=== PATIENT | female | born 1980 | race Caucasian/White ===

== ENCOUNTER 2023-06-03 04:12 | Emergency (ER) | payer OTHER, MEDICAID, SELFPAY ==
[2023-06-03 04:21] VITALS: BP 139/75; PULSE 105; RESP 18; TEMP 36.4; O2SAT 100; BMI 28.3
--- NOTE | 2023-06-03 04:31 | ED.EXTPRO ---
HPI - Extremity Problem General Chief complaint: Extremity Problem,Nontraumatic Stated complaint: lower rt leg cellulitis Time Seen by Provider: 06/03/23 04:14 Source: patient and family Mode of arrival: Wheelchair Limitations: no limitations History of Present Illness HPI Narrative: This is a 42-year-old female with reported history of MS who presents with complaints of cellulitis infection of her right lower leg. Patient states she was seen and Torie Connelly as well as at [place] had cellulitis of her lower extremity was at 1 facility for 3 days receiving IV antibiotics and then left, she went to another facility briefly received IV antibiotics but left shortly thereafter she felt very uncomfortable with staff. Patient states she believes initial injury was from cutting herself from shaving. She states she has had infections on her skin before. She does not think that she is had MRSA before. Patient states the redness is actually improved from when she was in the hospital and received 3 days of IV antibiotics. Patient states that she presents today because it is now weeping and that is pain has increased. She denies fevers in the last 24 hours. She states she did have fevers before at the other hospital. Patient denies chest pain, no shortness of breath, no syncope. She denies nausea or vomiting, no diarrhea constipation, no urinary symptoms. No numbness tingling or weakness of her lower extremities. She states the leg is swollen but improved from before. There is quite a bit of skin breakdown in sloughing which she states that has actually improved somewhat as well. Patient states that she was not discharged on any oral antibiotics but left against medical advice. She does use tobacco, to active alcohol use. Denies any recreational or IV drugs. Related Data Previous Rx's Medication Instructions Recorded non-adherent bandage 4 X 3 #25 ea 06/03/23 (Non-Stick Pad) sulfamethoxazole 800 1 tab PO Q12H #20 tabs 06/03/23 mg-trimethoprim 160 mg tablet (Bactrim DS) Allergies Allergy/AdvReac Type Severity Reaction Status Date / Time Penicillins Allergy Severe Anaphylaxis Verified 06/03/23 04:52 Review of Systems Review of Systems ROS Unobtainable: All systems reviewed & are unremarkable except as noted in HPI and below Patient History Social History Smoking Status: Current some day smoker Smoking Status: Current some day smoker Substance Use Type: marijuana Exam Narrative Exam Narrative: GENERAL: Alert and oriented x three, female in mild distress. HEENT: Head normocephalic, atraumatic, EOMI, pupils reactive, face symmetric, moist mucous membranes NECK: Supple, full range of motion CARDIOVASCULAR: Regular rate and rhythm without murmurs, rubs or gallops. RESPIRATORY: Breath sounds equal bilaterally, no wheezes rales or rhonchi. ABDOMEN: Soft, nontender. Normoactive bowel sounds all 4 quadrants. No guarding or rebound, rigidity, no mass : No CVA tenderness EXTREMITIES: Normal range of motion, no clubbing. Neurovascularly intact. Patient has significant swelling of the right lower extremity, she has an area that is about 12 cm in length circumferential over the lower leg with sloughing, weepage and scabbing, there is no purulent drainage but is serous sanguinous. Patient has erythema tracking down towards her foot and also tracking up to the level of her knee. She does have swelling slightly right compared to left. She is tender to touch. Does have positive pulses bilaterally with normal range of motion. Sensation to light touch throughout cap refill less than 2 seconds in all 5 toes. Patient's lower extremity was marked with pen and day and time. NEUROLOGICAL: Cranial nerves II through XII grossly intact. Moving all extremities SKIN: Warm, dry, no petechiae. See above. No lesions or rashes appreciated elsewhere on patient's body. Initial Vital Signs Initial Vital Signs: Vital Signs Temperature 97.6 F 06/03/23 04:21 Pulse Rate 105 H 06/03/23 04:21 Respiratory Rate 18 06/03/23 04:21 Blood Pressure 139/75 06/03/23 04:21 Pulse Oximetry 100 06/03/23 04:21 Oxygen Delivery Method Room Air 06/03/23 04:21 Course Orders Ordered: Discontinued Medications Hydrocodone Bitart/Acetaminophen (Hydrocodone/Acet 5/325 Prepack) 1 bottle MISC SEEINSTR ONE Stop: 06/03/23 04:45 Last Admin: 06/03/23 04:53 Dose: 1 bottle Trimethoprim/Sulfamethoxazole (Trimeth/Sulfa 160/800 (Ds) Tablet) 1 tab PO NOW ONE Stop: 06/03/23 04:45 Last Admin: 06/03/23 04:53 Dose: 1 tab Vital Signs Vital signs: Vital Signs - 8 hr 06/03/23 04:21 06/03/23 04:45 Temperature 97.6 F Pulse Rate 105 H 100 H Respiratory Rate 18 18 Blood Pressure 139/75 Pulse Oximetry 100 100 Oxygen Delivery Method Room Air Room Air MDM - Extremity (Nontraumatic) MDM Narrative Medical decision making narrative: This is a 42-year-old female who presents with complaint of right lower leg cellulitis has received 3 days of IV antibiotics in the an additional dose of IV panic after leaving both hospitals. She was not discharged with any oral medications. She left without seeing the admitting physician at [facility]. She states she has had Bactrim in the past and has been helpful. Discussed with patient she should be admitted for IV antibiotics for her lower extremity she has cellulitis with some significant sloughing and skin breakdown no necrosis but there is quite a bit of weeping patient I do not expect to improve with oral antibiotics at all. Express this directly to the patient and her fiance who is at bedside. She is very adamant she does not wish to be admitted or have lab work or IV. Patient was given prescription for oral antibiotic we discussed she can return at any time as welcome to do so. She was given a prepack of pain medication. She did request a prescription for bandages. Patient's lower extremity was marked and she was encouraged to return for admission. She is slightly tachycardic, she is afebrile here she is overall nontoxic except for her lower extremity. Did receive patient's Against Medical Advice discharge summary from [facility] patient was present in the facility for about 4 hours, appears she left without prescription for antibiotics or seeing the physician who admitted her. She did have a white count of 16, 2% bands with a hemoglobin of 12.9 and platelets of 175, she had normal creatinine of 0.69 with a sodium of 129, potassium 3.2 chloride 96 in his CO2 of 20. Glucose was 173 with a serum calcium of 8.3. Discharge Plan Departure Patient Disposition: Home Clinical Impression: Cellulitis of right lower limb Instructions: DI for Cellulitis -- Adult Activity Restrictions/Additional Instructions: It is highly recommended that you stay for admission and inpatient antibiotics. I do not think your leg will heal with oral antibiotics. You are welcome to return at any time You can take Ibuprofen up to 600mg every 6 hours. You can take [place] 1 tablet every 6 hours as needed. This medication can make you sleepy do not drive, perform hazardous activities or make any major decisions while taking it. This medication will make you constipated please take a stool softener once to twice daily until stools are soft and regular. Take antibiotics until completed. [facility]cription [facility] to [facility] in [place]. You can return at any time, please return immediately for fevers increasing redness, swelling, increasing pain, drainage or purulent drainage, new numbness, tingling or weakness or other new or concerning changes. Prescriptions: New sulfamethoxazole-trimethoprim [Bactrim DS] 800-160 mg tablet 1 tab PO Q12H Qty: 20 0RF (DME) Non-Stick Pad 4 X 3 bandage See Rx Instructions .Route Qty: 25 0RF Rx Instructions: As directed Stand Alone Forms: Patient Portal/API, Work Release Note
[2023-06-03 04:45] VITALS: PULSE 100; RESP 18; O2SAT 100
[2023-06-03] MEDS: TRIMETH/SULFA 160/800 (DS) TABLET 1 TAB PO (04:53)
[2023-06-03] MEDS: HYDROCODONE/ACET 5/325 PREPACK 1 BOTTLE MISC (04:53)
== END 2023-06-03 05:05 | disposition home or self-care (01) ==
LOC: ED 05:04
PROVIDERS: Emergency Provider Emergency Medicine
DX: L03.115 Cellulitis of right lower limb (principal)
CPT/HCPCS: 99283

== ENCOUNTER 2023-06-04 19:16 | Emergency (ER) | payer OTHER, MEDICAID, SELFPAY ==
[2023-06-04 19:19] VITALS: BP 124/71; PULSE 116; RESP 18; TEMP 36.3; O2SAT 98; BMI 28.3
[2023-06-04 19:33] VITALS: BP 111/68; PULSE 106; O2SAT 98
--- NOTE | 2023-06-04 19:58 | ED_ITS ---
HPI - Recheck/Abnormal Lab/Rx General Chief Complaint: Recheck/Abnormal Lab/Rx Stated Complaint: cellulitis rt leg Time Seen by Provider: 06/04/23 19:57 Source: patient Mode of arrival: Wheelchair History of Present Illness HPI narrative: 42-year-old woman with history of multiple sclerosis, Raynaud's disease, chronic lower extremity edema continued tobacco use methamphetamine (patient was positive for methamphetamine on May 23 at [facility] in [place].) was admitted to [facility] for sepsis on May 23 and ended up leaving Against Medical Advice later that same day. Later that same day she was seen and evaluated at [facility] had a CT scan of the lower extremity with concerns for necrotizing fasciitis with no soft tissue gas or abscess appreciated. Labs on the with her 2nd visit showed her lactic acid was down from 2.4-1.7 and procalcitonin was significantly elevated. Social work note from May 23 found the patient at low risk for discharge planning needs. Patient notes that she was given 10 days of Bactrim and has taken 3 days and is feeling better. She was given 4 tablets of [place] that she would mixed with ibuprofen seem to help however she is continuing to have pain and comes in for help with the pain. She denies fevers or chills. She very much does not want any additional workup, IVs, IV antibiotic but would like help with pain. She is wondering if topical lidocaine might be helpful. Related Data Home Medications Medication Instructions Recorded Confirmed furosemide 20 mg tablet 20 mg PO BID 06/04/23 06/04/23 Previous Rx's Medication Instructions Recorded non-adherent bandage 4 X 3 #25 ea 06/03/23 (Non-Stick Pad) sulfamethoxazole 800 1 tab PO Q12H #20 tabs 06/03/23 mg-trimethoprim 160 mg tablet (Bactrim DS) bacitracin 500 unit/gram topical 1 applic topical TID #28 grams 06/04/23 ointment lidocaine HCl 4 % topical gel 1 applic topical BID #118 mL 06/04/23 Allergies Allergy/AdvReac Type Severity Reaction Status Date / Time Penicillins Allergy Severe Anaphylaxis Verified 06/04/23 19:19 Patient History Social History Smoking Status: Current some day smoker Smoking Status: Current some day smoker Substance Use Type: marijuana Exam Initial Vital Signs Initial Vital Signs: Vital Signs Temperature 97.4 F L 06/04/23 19:19 Pulse Rate 116 H 06/04/23 19:19 Respiratory Rate 18 06/04/23 19:19 Blood Pressure 124/71 06/04/23 19:19 Pulse Oximetry 98 06/04/23 19:19 Oxygen Delivery Method Room Air 06/04/23 19:19 Course Orders Ordered: Discontinued Medications Bacitracin (Bacitracin Oint 0.9 Gm Pckt) 20 applic TOP NOW ONE Stop: 06/04/23 20:18 Lidocaine HCl (Lidocaine Jelly 2% 5 Ml) 1 applic TOP NOW ONE Stop: 06/04/23 20:16 Vital Signs Vital signs: Vital Signs - 8 hr 06/04/23 19:19 06/04/23 19:33 06/04/23 19:33 Temperature 97.4 F L Pulse Rate 116 H 106 H Respiratory Rate 18 Blood Pressure 124/71 111/68 Pulse Oximetry 98 98 Oxygen Delivery Method Room Air MDM - Recheck/Abnormal Lab/Rx MDM Narrative Medical decision making narrative: CC: Right lower extremity cellulitis with increasing pain Complicating co-morbidities: Multiple sclerosis, unwilling to consider hospitalization, IV start, IV antibiotics Data collected from: patient, partner Social determinants of health that may influence the patients condition: Methamphetamine use, unwilling to consider advanced medical treatment Medical records reviewed: Please see H and P above for events of May 23. ER notes from June 03 with similar complaints are reviewed Differential considered: Chronic lower extremity edema, cellulitis, necrotizing fasciitis, underlying abscess, osteomyelitis Exam documented above, pertinent findings include: Patient is not toxic appearing, the right lower extremity has dramatic cellulitis with skin erosion and eschar circumferentially. It is erythematous up to the knee. She reports that it is significantly improved. She has elevated topically on it currently. Lab Test results independently reviewed as above. Pertinent findings: Patient declines any additional testing Independently reviewed EKG as above Imaging studies independently reviewed: Consultations: Treatments: With shared decision making, we opted to try topical lidocaine. Discussed the importance of appropriate medical treatment and further workup and in the absence of that treating what appears to be a severe bacterial infection with narcotics is not going to be appropriate. She was willing to consider adding topical antibiotic as well as completing the oral Bactrim. Re-evaluations: Patient declines even allowing us to clean the wound or try the topical lidocaine. Discussion: 42-year-old woman with severe right lower extremity cellulitis in the setting of MS, methamphetamine use and chronic lower extremity edema. She has declined further appropriate workup, expanded antibiotics or more thorough exam in the emergency department. She is given topical lidocaine and topical bacitracin and refuses to allow us to clean or address the room wound in any way. Will call in a prescription for additional topical lidocaine and bacitracin. She has been fully informed of concerns for life-threatening abnormalities, limb-threatening abnormalities and from sepsis. She and her partner chills still choose to leave. Encouraged her to return should she worsen. Discharge Plan Departure Patient Disposition: Home Clinical Impression: Cellulitis of right lower limb Activity Restrictions/Additional Instructions: Your right leg is significantly infected and has potential to get dramatically worse with complications including chronic infection, sepsis, abscess development, possibility of complications that would lead to amputation of the limb and . I respect the fact that you do not want to have any additional workup. Please note that you are welcome to return to the emergency department for additional workup. Without additional workup additional oral pain medications are not going to be appropriate. Prescriptions for additional bacitracin and lidocaine have been transmitted to [facility] in [place]. Please make sure you complete the entire course of the Bactrim antibiotic that you have started. If you find that you are getting worse or develop any new symptoms, please feel free to return to the emergency department for further evaluation. Prescriptions: New lidocaine HCl 4 % gel 1 applic topical BID Qty: 118 1RF bacitracin 500 unit/gram ointment 1 applic topical TID Qty: 28 2RF No Action furosemide 20 mg tablet 20 mg PO BID sulfamethoxazole-trimethoprim [Bactrim DS] 800-160 mg tablet 1 tab PO Q12H Qty: 20 0RF (DME) Non-Stick Pad 4 X 3 bandage See Rx Instructions .Route Qty: 25 0RF Rx Instructions: As directed Stand Alone Forms: Patient Portal/API
[2023-06-04 20:00] VITALS: BP 110/62; PULSE 106; O2SAT 97
--- NOTE | 2023-06-04 20:30 | PC.NURSE ---
Pt refused to have wound cleaned in the ED. Pt reports she has been soaking and cleaning at home with soap and water and prefers to clean and apply lido and antibiotic ointment at home. Dr. Friedman made aware.
[2023-06-04] MEDS: LIDOCAINE JELLY 2% 5 ML 1 APPLIC TOP (20:31)
[2023-06-04] MEDS: BACITRACIN OINT 0.9 GM PCKT 20 APPLIC TOP (20:31)
== END 2023-06-04 20:45 | disposition home or self-care (01) ==
PROVIDERS: Emergency Provider Emergency Medicine
DX: L03.115 Cellulitis of right lower limb (principal)
CPT/HCPCS: 99282; 99283

== ENCOUNTER 2023-12-21 01:01 | Day surgery (SDC) | payer OTHER, MEDICAID, SELFPAY ==
[2023-12-21] VITALS (32 sets, daily range): BP systolic 98–163; BP diastolic 69–102; PULSE 93–119; RESP 11–24; TEMP 35.9–36.9; O2SAT 92–99; BMI 30.9
--- NOTE | 2023-12-21 01:18 | ED.GENADULT ---
HPI - General Adult General Chief complaint: Abdominal Pain Stated complaint: abd pain, vomiting, has MS Time Seen by Provider: 12/21/23 01:18 Source: patient Mode of arrival: Wheelchair History of Present Illness HPI narrative: 43-year-old woman with history of multiple sclerosis. She she was initially concerned that her current symptoms are related to her MS however, as the day has progressed the pain has increased well beyond any MS type pain, the nausea and vomiting has gotten worse. She describes the pain now is localizing in the left lower quadrant. She is uncomfortable in any position and movement is painful. She has not had diarrhea or constipation. She has not complaining of chest pain or palpitations. No headaches. She has not reported recent fevers. Related Data Home Medications Medication Instructions Recorded Confirmed furosemide 20 mg tablet 20 mg PO BID 06/04/23 12/21/23 Previous Rx's Medication Instructions Recorded bacitracin 500 unit/gram topical 1 applic topical TID #28 grams 06/04/23 ointment Allergies Allergy/AdvReac Type Severity Reaction Status Date / Time Penicillins Allergy Severe Anaphylaxis Verified 06/04/23 19:19 Review of Systems Review of Systems Narrative: Pertinent positive and negative findings as per HPI Patient History Medical History Multiple sclerosis Surgical History H/O tubal ligation Social History household members: significant other Smoking Status: Current some day smoker alcohol intake: never Smoking Status: Current some day smoker Substance Use Type: marijuana Exam Initial Vital Signs Initial Vital Signs: Vital Signs Temperature 98.4 F 12/21/23 01:04 Pulse Rate 114 H 12/21/23 01:04 Respiratory Rate 22 12/21/23 01:04 Blood Pressure 154/88 H 12/21/23 01:04 Pulse Oximetry 97 12/21/23 01:04 Oxygen Delivery Method Room Air 12/21/23 01:04 General: Acutely ill-appearing, lying on her left side in significant pain, able to cooperate with history and exam HEENT: Dry mucous membranes, normal sclera with reactive pupils, Neck: No JVD, supple Respiratory: Lungs are clear to auscultation, no wheezing no rales no rhonchi. Full and symmetrical air movement Cardiac: Regular rate and rhythm no murmurs no bruits Abdomen: Soft, diffuse tenderness in all quadrants but significant tenderness to the point of rebound in the left lower quadrant. Also has significant tenderness just superior to the umbilicus concern for hernia, far too tender and distended for reduction at bedside Skin: Warm and dry, no rashes Neurologic: Grossly neurologically intact with no obvious asymmetries or abnormalities Extremities: No trauma, well perfused Psych: Cooperative, appropriate insight and affect Course Orders Ordered: Discontinued Medications Acetaminophen (Acetaminophen 325 Mg Tablet) 975 mg PO NOW PRN PRN Reason: Pain, Moderate (4-6) Hydrocodone Bitart/Acetaminophen (Hydrocodone/Acet 5/325 Tablet) 1 tab PO Q6HR PRN PRN Reason: Pain, Moderate (4-6) Last Admin: 12/21/23 16:14 Dose: 1 tab Documented By: PAUL Albuterol (Albuterol 2.5 Mg/3 Ml Neb (Adult)) 2.5 mg INH NOW PRN PRN Reason: Coughing, Wheezing, Dyspnea Bupivacaine HCl 30 ml/ (Epinephrine HCl 0.15 mg) 0 ml INJ NOW ONE Stop: 12/21/23 14:11 Last Admin: 12/21/23 14:10 Dose: 6 ml Documented By: BRANDAN Hydromorphone HCl (Hydromorphone 0.5 Mg Inj) 0.5 mg IV Q15MIN PRN PRN Reason: Pain, Last Admin: 12/21/23 11:41 Dose: 0.5 mg Documented By: Admin: 12/21/23 09:31 Dose: 0.5 mg Documented By: Admin: 12/21/23 07:11 Dose: 0.5 mg Documented By: Admin: 12/21/23 04:33 Dose: 0.5 mg Documented By: Admin: 12/21/23 02:56 Dose: 0.5 mg Documented By: DAMIAN Hydromorphone HCl (Hydromorphone 1 Mg Inj) 0 mg IV Q5MIN PRN PRN Reason: Pain, Moderate (4-6) Hydroxyzine HCl (Hydroxyzine 50 Mg/Ml Inj) 25 mg IM NOW PRN PRN Reason: Pain, Mild (1-3) Sodium Chloride (Normal Saline 0.9%) 1,000 mls @ 1,000 mls/hr IV BOLUS ONE Stop: 12/21/23 02:17 Last Infusion: 12/21/23 02:29 Dose: Infused Documented By: Admin: 12/21/23 01:29 Dose: 1,000 mls/hr Documented By: RYAN Sodium Chloride (Normal Saline 0.9%) 1,000 mls @ 1,000 mls/hr IV BOLUS ONE Stop: 12/21/23 03:43 Last Infusion: 12/21/23 03:58 Dose: Infused Documented By: Admin: 12/21/23 02:58 Dose: 1,000 mls/hr Documented By: DAMIAN Lactated Ringer's (Lactated Ringers) 1,000 mls @ 21 mls/hr IV CONT FRANCIA Last Infusion: 12/21/23 08:55 Dose: Infused Documented By: Admin: 12/21/23 06:03 Dose: 21 mls/hr Documented By: DAMIAN Clindamycin Phosphate (Cleocin) 900 mg in 50 mls @ 50 mls/hr IV NOW ONE Stop: 12/21/23 06:40 Last Infusion: 12/21/23 15:30 Dose: Infused Documented By: Admin: 12/21/23 13:37 Dose: 50 mls/hr Documented By: Infusion: 12/21/23 07:03 Dose: Infused Documented By: Admin: 12/21/23 06:03 Dose: 50 mls/hr Documented By: DAMIAN Lactated Ringer's (Lactated Ringers) 1,000 mls @ 42 mls/hr IV CONT FRANCIA Last Infusion: 12/21/23 14:57 Dose: Infused Documented By: Admin: 12/21/23 14:25 Dose: 42 mls/hr Documented By: Infusion: 12/21/23 14:25 Dose: Infused Documented By: Admin: 12/21/23 08:57 Dose: 42 mls/hr Documented By: ROSELYN Lactated Ringer's (Lactated Ringers) 500 mls @ 120 mls/hr IV CONT PRN PRN Reason: BP <90/60 or tachycardia >100 Last Admin: 12/21/23 16:16 Dose: 120 mls/hr Documented By: PAUL Ibuprofen (Ibuprofen 600 Mg Tablet) 600 mg PO Q6HR PRN PRN Reason: Fever/Mild Pain (1-3) Ketorolac Tromethamine (Ketorolac 30 Mg/Ml Vial) 30 mg IV NOW PRN PRN Reason: Pain, Mild (1-3) Meperidine HCl (Meperidine 50 Mg/Ml Inj) 25 mg IV PACUNOW PRN PRN Reason: Moderate pain or shivering Ondansetron HCl (Ondansetron 4 Mg/2 Ml Inj) 4 mg IV NOW ONE Stop: 12/21/23 01:19 Last Admin: 12/21/23 13:00 Dose: 4 mg Documented By: Admin: 12/21/23 01:29 Dose: 4 mg Documented By: RYAN Ondansetron HCl (Ondansetron 4 Mg/2 Ml Inj) 4 mg IV NOW ONE Stop: 12/21/23 12:55 Last Admin: 12/21/23 13:00 Dose: Not Given Documented By: PAUL Ondansetron HCl (Ondansetron 4 Mg/2 Ml Inj) 4 mg IV NOW PRN PRN Reason: Nausea And Vomiting Oxycodone HCl (Oxycodone Ir 5 Mg Tablet) 5 mg PO PACUNOW PRN PRN Reason: Mild or moderate pain Scopolamine (Scopolamine 1 Patch) 1 patch TOP NOW ONE Stop: 12/21/23 12:55 Last Admin: 12/21/23 13:00 Dose: 1 patch Documented By: CORINA Vital Signs Vital signs: Vital Signs - 8 hr 12/21/23 01:04 12/21/23 02:55 Temperature 98.4 F Pulse Rate 114 H 93 H Respiratory Rate 22 20 Blood Pressure 154/88 H 137/81 Pulse Oximetry 97 97 Oxygen Delivery Method Room Air Room Air Medical Decision Making Lab Data 12/21/23 01:15 12/21/23 01:15 Labs: Lab Results 12/21/23 Range/Units 01:15 WBC 18.4 H (4.5-11.0) X10^3/uL RBC 5.16 (4.0-5.2) X10^6/uL Hgb 15.6 (12.0-16.0) g/dL Hct 45.8 (36-46) % MCV 88.8 (80-100) fL MCH 30.3 (26-34) PG MCHC 34.1 (30-36) % RDW 13.9 (11.6-14.8) % Plt Count 309 (150-400) X10^3/uL Neut % (Auto) 86.1 H (50-75) % Lymph % (Auto) 7.6 L (25-40) % [place] % (Auto) 3.3 (3-14) % Eos % (Auto) 2.7 (2-4) % Baso % (Auto) 0.3 (0-2) % Neut # (Auto) 14821 H (5026-9155) /uL Lymph # (Auto) 1400 (3193-8306) /uL [place] # (Auto) 600 (0-900) /uL Eos # (Auto) 500 H (0-450) /uL Baso # (Auto) 100 (0-100) /uL Sodium 138 (137-145) mmol/L Potassium 4.2 (3.4-5.1) mmol/L Chloride 105 (98-107) mmol/L Carbon Dioxide 18 L (22-32) mmol/L BUN 21 H (7-17) mg/dL Creatinine 0.76 (0.52-1.04) mg/dL Estimated GFR > 60 (>60) mL/min BUN/Creatinine Ratio 27.6 H (6-22) Glucose 172 H (70-100) mg/dL Calcium 9.8 (8.4-10.2) mg/dL Total Bilirubin 0.7 (0.2-1.3) mg/dL AST 18 (14-36) IU/L ALT 13 (<35) IU/L Alkaline Phosphatase 86 (38-126) U/L Total Protein 9.0 H (6.3-8.2) g/dL Albumin 4.6 (3.5-5.0) g/dL Globulin 4.4 H (1.7-4.1) g/dL Albumin/Globulin Ratio 1.0 (1.0-2.8) Point of Care Testing Test Results Negative Glucose POC 127 Point of care testing: Point of Care Testing Test Results Negative Glucose POC 127 MDM Narrative Medical decision making narrative: CC: Nausea vomiting with increasing left lower quadrant abdominal pain Complicating co-morbidities: Multiple sclerosis, history of methamphetamine use Data collected from: patient Medical records reviewed: ER notes regarding her right lower extremity visits in May of 2023 are reviewed Differential considered: Bowel obstruction, diverticulitis, with a tubal ligation ectopic or ovarian torsion is within the realm of possibility Exam documented above, pertinent findings include: Significant periumbilical and left lower quadrant abdominal pain Lab Test results independently reviewed as above. Pertinent findings: CBC shows leukocytosis at 18.4 with significant left shift at 86.1, no anemia Chemistries are notable for appropriate creatinine and electrolytes. Carbon dioxide is slightly low at 18. Glucose is elevated at 172. ALT AST bili and alk-phos are all appropriate Imaging studies independently reviewed: CT scan is reviewed and appears she has an incarcerated umbilical hernia with gut protruding causing a bowel obstruction. Wait for formal radiology read. Consultations:Dr Cardoza, surgery Treatments: Fluids, Zofran, Dilaudid Re-evaluations:420am patient is re-evaluated. Reviewed concerns with CT scan results. Last food was approximately 24 hours ago. At this point pain is adequately controlled. Discussion: 43-year-old woman with an umbilical hernia that is now incarcerated and causing a bowel obstruction. She has increasingly tender left lower quadrant with developing peritoneal signs and significant tenderness over the umbilical hernia the superior aspect of the umbilicus. Care is reviewed with Dr. Cardoza who will follow up and take the patient to surgery. She requests that we hold antibiotics until just prior to surgical intervention. Patient is aware of findings and need for hospital admission as well as surgical care. Discharge Plan Departure Patient Disposition: Admitted to Surgery Clinical Impression: Umbilical hernia, incarcerated, Complete small bowel obstruction Admit Date/Time: 12/21/23 05:35 Admit Provider: Zahraa Cardoza
[2023-12-21 01:29] LABS: Add Manual Diff / Slide Review NO; Basophils Absolute Auto 100 /uL (0-100); Basophils Percent Auto 0.3 % (0-2); Eosinophils Absolute Auto 500 /uL (0-450); Eosinophils Percent Auto 2.7 % (2-4); Hematocrit 45.8 % (36-46); Hemoglobin 15.6 g/dL (12.0-16.0); Lymphocytes Absolute Auto 1400 /uL (1100-4500); Lymphocytes Percent Auto 7.6 % (25-40); Mean Corpuscular HGB Conc 34.1 % (30-36); Mean Corpuscular Hemoglobin 30.3 PG (26-34); Mean Corpuscular Volume 88.8 fL (80-100); Monocytes Absolute Auto 600 /uL (0-900); Monocytes Percent Auto 3.3 % (3-14); Neutrophils Absolute Auto 15900 /uL (1500-7000); Neutrophils Percent Auto 86.1 % (50-75); Platelet Count 309 X10^3/uL (150-400); Red Blood Cell Count 5.16 X10^6/uL (4.0-5.2); Red Cell Distribution Width 13.9 % (11.6-14.8); White Blood Cell Count 18.4 X10^3/uL (4.5-11.0)
[2023-12-21] MEDS: SODIUM CHLORIDE 0.9% 1,000 ML 1000 ML IV ×2 (01:29→02:58)
[2023-12-21] MEDS: ONDANSETRON 4 MG/2 ML INJ IV ×2 (01:29→13:00)
[2023-12-21 01:33] LABS: Alanine Aminotransferase 13 IU/L (<35); Albumin 4.6 g/dL (3.5-5.0); Alkaline Phosphatase 86 U/L (38-126); Aspartate Aminotransferase 18 IU/L (14-36); BUN Creatinine Ratio 27.6 (6-22); Bilirubin Total 0.7 mg/dL (0.2-1.3); Blood Urea Nitrogen 21 mg/dL (7-17); Calcium 9.8 mg/dL (8.4-10.2); Carbon Dioxide 18 mmol/L (22-32); Chloride 105 mmol/L (98-107); Estimated Glomerular Filt Rate > 60 mL/min (>60); Globulin 4.4 g/dL (1.7-4.1); Glucose 172 mg/dL (70-100); HEMOLYSIS < 15 (0-50); Potassium 4.2 mmol/L (3.4-5.1); Sodium 138 mmol/L (137-145)
--- NOTE | 2023-12-21 02:44 | DI.CT.S_ITS ---
PROCEDURE: CT ABDOMEN PELVIS W CON INDICATIONS: Severe left lower quadrant pain TECHNIQUE: After the administration of intravenous contrast, axial sections acquired from the lung bases to the pubic symphysis. Coronal and sagittal reformats were performed. For radiation dose reduction, the following was used: automated exposure control, adjustment of mA and/or kV according to patient size. COMPARISON: None. FINDINGS: Image quality: Diagnostic. Lower Chest: 6 mm right lower lobe nodule (3/4). The lung bases are otherwise clear. ABDOMEN: Liver: No solid mass. Gallbladder: No radiopaque gallstones or wall thickening. Biliary ducts: No biliary dilation. Pancreas: No ductal dilation. Spleen: Size is within normal limits. Adrenal Glands: No adrenal nodules. Kidneys and Ureters: No hydronephrosis. No solid mass. No complex renal cystic lesion which requires follow up. Stomach and Bowel: Multiple dilated loops of small bowel with air-fluid levels measuring up to 3.4 cm. There is umbilical hernia containing loop of small bowel and fluid which is the transition point. Distal small bowel loops are under distended. Normal colonic caliber, without significant wall thickening. Diverticulosis without evidence of acute diverticulitis. Peritoneum: Small volume free fluid. No free air. Ventral Wall: Umbilical hernia as above Abdominal Nodes: No retroperitoneal or mesenteric adenopathy by size criteria. Vessels: Aorta and inferior vena cava are normal in size. PELVIS: Pelvic Organs: Likely right corpus luteal cyst.. Bladder: No bladder wall thickening, accounting for underdistention. Pelvic Nodes: No enlarged lymph nodes. Miscellaneous: No inguinal hernias are seen. Bones: No aggressive osseous abnormality. IMPRESSION: 1. Small-bowel obstruction with transition point at the umbilical hernia. No pneumoperitoneum or pneumatosis. Small free fluid within the abdomen and pelvis is likely reactive. 2. There is a 6 mm nodule within the right lower lobe. Optional 1 year follow-up chest CT can be obtained. Findings were discussed by the overnight radiologist with Raúl Huerta RN at 4:27 a.m. On 12/21/2023. Findings are concordant with preliminary interpretation provided by [facility]. Dictated by: Bonifacio Covarrubias M.D. on 12/21/2023 at 8:12 Approved by: Bonifacio Covarrubias M.D. on 12/21/2023 at 8:18
[2023-12-21] MEDS: HYDROMORPHONE 0.5 MG INJ IV ×5 (02:56→11:41)
[2023-12-21] MEDS: LACTATED RINGERS 1,000 ML 21 ML IV (06:03)
[2023-12-21] MEDS: CLINDAMYCIN 900 MG/50 ML PIGGYBACK 50 MG IV ×2 (06:03→13:37)
--- NOTE | 2023-12-21 07:39 | PM.HP.1 ---
History of Present Illness History of Present Illness Date Patient Seen: 12/21/23 Time Patient Seen: 07:39 Chief complaint: abd pain, vomiting, has MS Narrative: Less than 24hrs of abdominal pain, nausea and vomiting. No previous episodes. Pain is around umbilicus, sharp, worse with palpation. CT scan confirms incarcerated, obstructing umbilical hernia. [facility] Medical History Multiple sclerosis Surgical History H/O tubal ligation Social History Smoking Status: Current some day smoker Meds Home Medications and Allergies Home Medications Medication Instructions Recorded Confirmed Type non-adherent bandage 4 X 3 #25 ea 06/03/23 Rx (Non-Stick Pad) sulfamethoxazole 800 1 tab PO Q12H #20 tabs 06/03/23 06/04/23 Rx mg-trimethoprim 160 mg tablet (Bactrim DS) bacitracin 500 unit/gram topical 1 applic topical TID #28 grams 06/04/23 Rx ointment furosemide 20 mg tablet 20 mg PO BID 06/04/23 06/04/23 History lidocaine HCl 4 % topical gel 1 applic topical BID #118 mL 06/04/23 Rx Allergies Allergy/AdvReac Type Severity Reaction Status Date / Time Penicillins Allergy Severe Anaphylaxis Verified 06/04/23 19:19 Review of Systems Review of Systems ROS: Yes All systems reviewed with the patient and are negative except as otherwise documented Exam Vital Signs (past 8 hours): - 12/21/23 01:04 12/21/23 02:55 12/21/23 07:00 Temperature 98.4 F 98.1 F Pulse Rate 114 H 93 H 106 H Respiratory Rate 22 20 20 Blood Pressure 154/88 H 137/81 145/86 H Pulse Oximetry 97 97 94 Oxygen Delivery Method Room Air Room Air Room Air Oxygen Delivery Method Room Air Const General: cooperative, acute distress and anxious Nutritional Appearance: overweight Orientation: alert, awake and oriented x3 HENMT Head: normocephalic and atraumatic Eyes General: appearance normal, both eyes and all related structures Neck Neck: trachea midline and No JVD Resp Effort & Inspection: normal respiratory effort and able to speak in complete sentences Cardio Rate: tachycardic Rhythm: regular rhythm GI Palpation: soft and tender Other: palpable incarcerated umbilical hernia, tender, no skin changes Skin General: turgor normal Neuro General: patient alert, patient awake and patient oriented x3 Cognition: normal cognition Psych Mental Status: mental status grossly normal Affect: irritable affect Judgment: judgment good Objective Labs 12/21/23 01:15 12/21/23 01:15 Labs: Laboratory Results - last 24 hr 12/21/23 01:15 WBC 18.4 H RBC 5.16 Hgb 15.6 Hct 45.8 MCV 88.8 MCH 30.3 MCHC 34.1 RDW 13.9 Plt Count 309 Neut % (Auto) 86.1 H Lymph % (Auto) 7.6 L [place] % (Auto) 3.3 Eos % (Auto) 2.7 Baso % (Auto) 0.3 Neut # (Auto) 11854 H Lymph # (Auto) 1400 [place] # (Auto) 600 Eos # (Auto) 500 H Baso # (Auto) 100 Sodium 138 Potassium 4.2 Chloride 105 Carbon Dioxide 18 L BUN 21 H Creatinine 0.76 Estimated GFR > 60 BUN/Creatinine Ratio 27.6 H Glucose 172 H Calcium 9.8 Total Bilirubin 0.7 AST 18 ALT 13 Alkaline Phosphatase 86 Total Protein 9.0 H Albumin 4.6 Globulin 4.4 H Albumin/Globulin Ratio 1.0 Assessment & Plan Assessment & Plan narrative: Incarcerated, obstructing umbilical hernia with estimated defect of 1.5cm. Plan: OR for repair of umbilical hernia Time Spent With Patient Time with patient: 30 to 49 minutes with 50% spent counseling/coordinating care
[2023-12-21 08:39] LABS: Appearance Urine UA CLEAR; Bilirubin Urine UA NEGATIVE (NEGATIVE); Color Urine UA YELLOW; Glucose Urine UA TRACE g/dL (Negative); Ketones Urine UA TRACE (NEGATIVE); Leukocyte Esterase Urine UA NEGATIVE (NEGATIVE); Nitrite Urine UA NEGATIVE (Negative); Occult Blood Urine UA NEGATIVE (Negative); Protein Urine UA NEGATIVE (Negative); Specific Gravity Urine UA 1.025 (1.000-1.035); Urobilinogen Urine UA 0.2 E.U./dL (0.2)
[2023-12-21 08:46] LABS: Urine Volume 10mL (spun)
[2023-12-21 08:50] LABS: Bacteria Urine None Seen; Culture Indicated Urine Cult Not Indicated; RBC Urine None Seen (0-5/HPF); Squamous Epithelial Cell Urine None Seen (0-5/HPF); WBC Urine None Seen (0-5/HPF)
[2023-12-21] MEDS: LACTATED RINGERS 1,000 ML 42 ML IV ×2 (08:57→14:25)
[2023-12-21] MEDS: SCOPOLAMINE 1 PATCH TOP (13:00)
--- NOTE | 2023-12-21 13:33 | PC.NURSE ---
Patient arrived from ED to Room 216 at 1125 a.m. She is tearful asking for water and c/o dry mouth. RN offered mouth swabs, while moving patient c/o severe abdominal pain. Administered 0.5 mg IV hydromorphone PRN for pain, patient then vomits. Spouse at bedside supportive. IVF LR at 42 ml/hr continuous monitoring. PREOP RN arrived to transport patient via w/ch at approximately 1 p.m. to preop area.
--- NOTE | 2023-12-21 14:00 | SUR.OPER ---
Supine on padded OR bed, head on pillow, arms secured on padded arm boards at <90 degrees abduction, legs uncrossed, safety belt at thigh, tape over blanket over lower legs.
--- NOTE | 2023-12-21 14:07 | PM.OP.1 ---
Operative Date/Time/Diagnoses Date of procedure: 12/21/23 Time of procedure: 14:07 Pre-op diagnosis: Incarcerated, obstructed, umbilical hernia. Estimated defect 1.5 cm Post-op diagnosis: same Procedure & Clinicians Procedure: Repair of umbilical hernia with mesh Same procedure as scheduled: Yes Indications: Incarcerated, obstructed, umbilical hernia Surgeon: Zahraa Cardoza Click Yes if Unassisted: Yes Anesthesia Type: General and Local Operative Notes Findings: Knuckle of small bowel incarcerated in the umbilical hernia that reduced spontaneously with anesthesia. Defect 1.5 cm Closure Type: non-primary Specimen(s): none sent Prosthetic devices, grafts, tissues, transplants, or devices: Ventralex mesh Applied: implant(s) Estimated Blood Loss (mL): 10 Blood products transfused: none Procedure in detail: Preop diagnosis: Incarcerated, obstructing, umbilical hernia. Postop diagnosis: Same Operative procedure: Repair of umbilical hernia with mesh Surgeon: Becki Cardoza MD Findings: Small bowel within a 1.5 cm umbilical hernia Procedure: Patient placed in a supine position. Prepped and draped in sterile fashion to expose her abdomen. The hernia spontaneously reduced with relaxation of the abdominal wall. Supraumbilical curvilinear incision was created using 11 blade and electrocautery. The hernia sac itself was identified and circumferential dissection to clear the fascial edge was undertaken. We then chose an appropriate size Ventralex mesh proximally 3 cm and placed it in the defect. The associated wings of the mesh were sutured to the lateral fascial edges with 2-0 Ethibond. Superior and inferior edges were tacked to the mesh again with interrupted 2-0 Ethibond. Skin was closed with a running 4-0 Vicryl. Steri-Strips and sterile dressings were placed. Patient was awakened, extubated, taken to recovery room in stable condition. Needle, instrument, sponge counts were correct. Blood loss: 10 mL Specimen: None Complications: none Post-operative Condition: stable Disposition: PACU
[2023-12-21] MEDS: BUPIVACAINE 0.25% (PF) 30 ML, EPINEPHrine 0.15 MG INJ (14:10)
[2023-12-21] MEDS: HYDROCODONE/ACET 5/325 TABLET 1 TAB PO (16:14)
[2023-12-21] MEDS: LACTATED RINGERS 500 ML 120 ML IV (16:16)
--- NOTE | 2023-12-21 19:39 | PC.NURSE ---
Patient is A&OX4. She returned from PACU this afternoon feeling much better.She is able to void without difficulty. Incision dressing to umbilicus c/d/i. she denies n/v and reports abdominal pain much improved. She is medicated with prn hydrocodone witih good effect. She tolerates dinner well and is cleared for discharge home this evening with her spouse. She verbalizes understanding of meds, activity restrictions, s/sx of infection, as well as follow up appointment. RN transports her via w/ch to private vehicle with her spouse this evening at 1830 with all of her belongings for discharge home.
== END 2023-12-21 18:30 | disposition home or self-care (01) ==
LOC: ED 05:34 → AC 06:22 → OR 12-24 07:49
PROVIDERS: Emergency Provider Surgery; Referring Provider Emergency Medicine; Visit Provider Surgery
PROC: (CPT 49592; principal; 2023-12-21 12:45)
DX: K42.0 Umbilical hernia with obstruction, without gangrene (principal); R10.32 Left lower quadrant pain; G35 Multiple sclerosis
CPT/HCPCS: 49592; 36415; 74177; 80053; 81001; 81003; 81025; 82962; 85025; 99221; 99284; J0171; J0330; J1100; J1170; J2250; J2405; J2704; J3010; J3490; Q9967

== ENCOUNTER 2023-12-23 01:36 | Observation (INO) | payer OTHER, MEDICAID, SELFPAY ==
[2023-12-21 16:01] VITALS: BMI 30.9
[2023-12-23] VITALS (13 sets, daily range): BP systolic 122–153; BP diastolic 72–89; PULSE 95–138; RESP 18–30; TEMP 36.5–37.1; O2SAT 90–99; BMI 30.9
--- NOTE | 2023-12-23 01:55 | DI.CT.S_ITS ---
PROCEDURE: CT ABDOMEN PELVIS W CON INDICATIONS: 08/14 GENERAL ABD PAIN, RECENT UMBILICAL HERNIA REPAIR TECHNIQUE: After the administration of intravenous contrast, axial sections acquired from the lung bases to the pubic symphysis. Coronal and sagittal reformats were performed. For radiation dose reduction, the following was used: automated exposure control, adjustment of mA and/or kV according to patient size. COMPARISON: [facility], CT, CT ABDOMEN PELVIS W CON, 12/21/2023, 3:00. FINDINGS: Image quality: Diagnostic. Lower Chest: Right greater than left lung base atelectasis.. ABDOMEN: Liver: No solid mass. Gallbladder: No radiopaque gallstones or wall thickening. Biliary ducts: No biliary dilation. Pancreas: No ductal dilation. Spleen: Size is within normal limits. Adrenal Glands: No adrenal nodules. Kidneys and Ureters: No hydronephrosis. No solid mass. Stable simple appearing left renal cortical cyst. No complex renal cystic lesion which requires follow up. Stomach and Bowel: There are multiple loops of distended small bowel, which may reflect mechanical obstruction. Transition point appears to be in the lateral right lower quadrant. Distal ileum is decompressed and unremarkable. Peritoneum: Small volume free fluid in the upper quadrant, pericolic gutters and pelvis, increased since prior CT 12/21/2023. No free air. Ventral Wall: Status post umbilical hernia repair prior. Expected small amount of gas within the soft tissues given recent history of surgery. Abdominal Nodes: No retroperitoneal or mesenteric adenopathy by size criteria. Vessels: Aorta and inferior vena cava are normal in size. PELVIS: Pelvic Organs: Unremarkable. Bladder: No bladder wall thickening, accounting for underdistention. Pelvic Nodes: No enlarged lymph nodes. Miscellaneous: No inguinal hernias are seen. Bones: No acute or suspicious osseous abnormality. IMPRESSION: Compared to prior CT 12/21/2023, interval umbilical hernia repair. Persistent dilated loops of small bowel with possible transition point in the lateral right lower quadrant. Findings are concerning for residual/recurrent small-bowel obstruction following hernia repair. Increased free fluid in the abdomen and pelvis. Preliminary findings were discussed with Prema Polo RN by overnight radiologist on December 23, 2023 at 3:31 a.m. [facility]. Findings are concordant with preliminary interpretation provided by [facility]. Approved by: Sara Cabrera M.D. on 12/23/2023 at 11:33
--- NOTE | 2023-12-23 01:57 | ED.ABDPAIN ---
HPI - Abdominal Pain <Jana Dorado MD - Last Filed: 12/23/23 19:26> General Chief Complaint: Abdominal Pain Stated Complaint: had surgery 2 days ago and is in a lot of pain Time Seen by Provider: 12/23/23 01:41 History of Present Illness HPI narrative: 43-year-old female with recent history of incarcerated umbilical hernia leading to small bowel obstruction, repaired 12/21/23 presents by private vehicle for severe generalized abdominal pain with vomiting that began approximately 9:00 p.m. not controlled with the pain medications she was discharged from the hospital with. Related Data Home Medications Medication Instructions Recorded Confirmed furosemide 20 mg tablet 20 mg PO BID 06/04/23 12/23/23 Allergies Allergy/AdvReac Type Severity Reaction Status Date / Time Penicillins Allergy Severe Anaphylaxis Verified 06/04/23 19:19 Review of Systems <Jana Dorado MD - Last Filed: 12/23/23 19:26> Review of Systems Narrative: Negative except as noted above Patient History <Jana Dorado MD - Last Filed: 12/23/23 19:26> Medical History Multiple sclerosis Surgical History H/O tubal ligation Social History household members: significant other Smoking Status: Current some day smoker alcohol intake: never Smoking Status: Current some day smoker Substance Use Type: marijuana Exam <Jana Dorado MD - Last Filed: 12/23/23 19:26> Narrative Exam Narrative: Const: Awake, alert, tearful, appears older than stated age, chronically unwell Cardiac: regular rate, regular rhythm RESP: unlabored, clear bilaterally, no wheezing GI: Umbilical hernia site clean, dry, intact. Generalized tenderness to both light and deep palpation Skin: Warm, Dry, intact, no rashes Neuro: AO x3, CN II-XII grossly intact, moves all extremities Initial Vital Signs Initial Vital Signs: Vital Signs Pulse Rate 102 H 12/23/23 01:50 Pulse Oximetry 97 12/23/23 01:50 <Ana M Arreguin DO - Last Filed: 12/23/23 10:10> Initial Vital Signs Initial Vital Signs: Vital Signs Pulse Rate 102 H 12/23/23 01:50 Pulse Oximetry 97 12/23/23 01:50 Course <Jana Dorado MD - Last Filed: 12/23/23 19:26> Orders Ordered: ED Orders 12/23/23 15:30 Complete Blood Count AUTO DIFF Routine 12/23/23 16:13 Basic Metabolic Panel Routine Lactate (Lactic Acid) Stat Hydrocodone Bitart/Acetaminophen (Hydrocodone/Acet 10/325 Tablet) 1 tab PO Q4HR PRN PRN Reason: Pain, Moderate (4-6) Celecoxib (Celecoxib 200 Mg Capsule) 200 mg PO BID [facility] Heparin Sodium (Porcine) (Heparin 5,000 Unit/Ml Vial) 5,000 unit SUBCUT BID [facility] Last Admin: 12/23/23 11:08 Dose: 5,000 unit Documented By: MPO Hydromorphone HCl (Hydromorphone 0.5 Mg Inj) 0.5 mg IV Q2HR PRN PRN Reason: Pain, Moderate (1-3) Last Admin: 12/23/23 16:09 Dose: 0.5 mg Documented By: Admin: 12/23/23 11:25 Dose: 0.5 mg Documented By: MPO Hydromorphone HCl (Hydromorphone 1 Mg Inj) 1 mg IV Q3HR PRN PRN Reason: Pain, Severe (7-10) Lactated Ringer's (Lactated Ringers) 1,000 mls @ 100 mls/hr IV CONT [facility] Last Admin: 12/23/23 11:07 Dose: 100 mls/hr Documented By: MPO Naloxone HCl (Naloxone 0.4 Mg/Ml Vial) 0.2 mg IV Q2MIN PRN PRN Reason: Opiate Reversal Simethicone (Simethicone 80 Mg Tablet) 80 mg PO QID [facility] Last Admin: 12/23/23 18:23 Dose: 80 mg Documented By: Admin: 12/23/23 16:08 Dose: 80 mg Documented By: Admin: 12/23/23 11:08 Dose: 80 mg Documented By: MPO Discontinued Medications Diatrizoate Meglum/Diatrizoate Sod (Diatrizoate Meglumine, Sodium 30 Ml Solution) 30 ml PO NOW ONE Stop: 12/23/23 03:39 Last Admin: 12/23/23 04:15 Dose: 30 ml Documented By: Droperidol (Droperidol 5 Mg/2 Ml Vial) 2.5 mg IV NOW ONE Stop: 12/23/23 05:04 Last Admin: 12/23/23 05:07 Dose: 2.5 mg Documented By: Hydromorphone HCl (Hydromorphone 1 Mg Inj) 1 mg IV NOW ONE Stop: 12/23/23 09:05 Last Admin: 12/23/23 09:15 Dose: 1 mg Documented By: MOJGAN Hydromorphone HCl (Hydromorphone 0.5 Mg Inj) 1 mg IV Q3HR PRN PRN Reason: Pain, Severe (7-10) Sodium Chloride (Normal Saline 0.9%) 1,000 mls @ 1,000 mls/hr IV BOLUS ONE Stop: 12/23/23 02:54 Last Infusion: 12/23/23 05:18 Dose: Infused Documented By: Admin: 12/23/23 01:58 Dose: 1,000 mls/hr Documented By: MELBA Acetaminophen (Ofirmev) 1,000 mg in 100 mls @ 400 mls/hr IV NOW ONE Stop: 12/23/23 04:28 Last Infusion: 12/23/23 04:33 Dose: Infused Documented By: Admin: 12/23/23 04:18 Dose: 400 mls/hr Documented By: Ketorolac Tromethamine (Ketorolac 30 Mg/Ml Vial) 15 mg IV NOW ONE Stop: 12/23/23 04:15 Last Admin: 12/23/23 04:17 Dose: 15 mg Documented By: Ketorolac Tromethamine (Ketorolac 30 Mg/Ml Vial) 30 mg IV QID FRANCIA Last Admin: 12/23/23 16:08 Dose: Not Given Documented By: Admin: 12/23/23 11:08 Dose: 30 mg Documented By: MOJGAN Metoclopramide HCl (Metoclopramide 10 Mg/2 Ml Inj) 10 mg IV NOW ONE Stop: 12/23/23 04:26 Last Admin: 12/23/23 04:28 Dose: 10 mg Documented By: Morphine Sulfate (Morphine 4 Mg/Ml Inj) 4 mg IV NOW ONE Stop: 12/23/23 01:56 Last Admin: 12/23/23 01:58 Dose: 4 mg Documented By: SB Ondansetron HCl (Ondansetron 4 Mg/2 Ml Inj) 4 mg IV NOW ONE Stop: 12/23/23 09:07 Last Admin: 12/23/23 09:15 Dose: 4 mg Documented By: MOJGAN Vital Signs Vital signs: Vital Signs - 8 hr 12/23/23 09:57 Temperature 98.7 F Pulse Rate 109 H Respiratory Rate 20 Blood Pressure 143/87 H Pulse Oximetry 98 Oxygen Delivery Method Room Air <Ana M Arreguin DO - Last Filed: 12/23/23 10:10> Orders Ordered: ED Orders 12/23/23 15:30 Complete Blood Count AUTO DIFF Routine 12/23/23 16:13 Basic Metabolic Panel Routine Lactate (Lactic Acid) Stat Hydrocodone Bitart/Acetaminophen (Hydrocodone/Acet 10/325 Tablet) 1 tab PO Q4HR PRN PRN Reason: Pain, Moderate (4-6) Celecoxib (Celecoxib 200 Mg Capsule) 200 mg PO BID [facility] Heparin Sodium (Porcine) (Heparin 5,000 Unit/Ml Vial) 5,000 unit SUBCUT BID [facility] Last Admin: 12/23/23 11:08 Dose: 5,000 unit Documented By: MOJGAN Hydromorphone HCl (Hydromorphone 0.5 Mg Inj) 0.5 mg IV Q2HR PRN PRN Reason: Pain, Moderate (1-3) Last Admin: 12/23/23 16:09 Dose: 0.5 mg Documented By: Admin: 12/23/23 11:25 Dose: 0.5 mg Documented By: MOJGAN Hydromorphone HCl (Hydromorphone 1 Mg Inj) 1 mg IV Q3HR PRN PRN Reason: Pain, Severe (7-10) Lactated Ringer's (Lactated Ringers) 1,000 mls @ 100 mls/hr IV CONT [facility] Last Admin: 12/23/23 11:07 Dose: 100 mls/hr Documented By: MOJGAN Naloxone HCl (Naloxone 0.4 Mg/Ml Vial) 0.2 mg IV Q2MIN PRN PRN Reason: Opiate Reversal Simethicone (Simethicone 80 Mg Tablet) 80 mg PO QID [facility] Last Admin: 12/23/23 18:23 Dose: 80 mg Documented By: Admin: 12/23/23 16:08 Dose: 80 mg Documented By: Admin: 12/23/23 11:08 Dose: 80 mg Documented By: MOJGAN Discontinued Medications Diatrizoate Meglum/Diatrizoate Sod (Diatrizoate Meglumine, Sodium 30 Ml Solution) 30 ml PO NOW ONE Stop: 12/23/23 03:39 Last Admin: 12/23/23 04:15 Dose: 30 ml Documented By: Droperidol (Droperidol 5 Mg/2 Ml Vial) 2.5 mg IV NOW ONE Stop: 12/23/23 05:04 Last Admin: 12/23/23 05:07 Dose: 2.5 mg Documented By: Hydromorphone HCl (Hydromorphone 1 Mg Inj) 1 mg IV NOW ONE Stop: 12/23/23 09:05 Last Admin: 12/23/23 09:15 Dose: 1 mg Documented By: MOJGAN Hydromorphone HCl (Hydromorphone 0.5 Mg Inj) 1 mg IV Q3HR PRN PRN Reason: Pain, Severe (7-10) Sodium Chloride (Normal Saline 0.9%) 1,000 mls @ 1,000 mls/hr IV BOLUS ONE Stop: 12/23/23 02:54 Last Infusion: 12/23/23 05:18 Dose: Infused Documented By: Admin: 12/23/23 01:58 Dose: 1,000 mls/hr Documented By: MELBA [facility]aminophen ([facility]) 1,000 mg in 100 mls @ 400 mls/hr IV NOW ONE Stop: 12/23/23 04:28 Last Infusion: 12/23/23 04:33 Dose: Infused Documented By: Admin: 12/23/23 04:18 Dose: 400 mls/hr Documented By: Ketorolac Tromethamine (Ketorolac 30 Mg/Ml Vial) 15 mg IV NOW ONE Stop: 12/23/23 04:15 Last Admin: 12/23/23 04:17 Dose: 15 mg Documented By: Ketorolac Tromethamine (Ketorolac 30 Mg/Ml Vial) 30 mg IV QID FRANCIA Last Admin: 12/23/23 16:08 Dose: Not Given Documented By: Admin: 12/23/23 11:08 Dose: 30 mg Documented By: MOJGAN Metoclopramide HCl (Metoclopramide 10 Mg/2 Ml Inj) 10 mg IV NOW ONE Stop: 12/23/23 04:26 Last Admin: 12/23/23 04:28 Dose: 10 mg Documented By: AB Morphine Sulfate (Morphine 4 Mg/Ml Inj) 4 mg IV NOW ONE Stop: 12/23/23 01:56 Last Admin: 12/23/23 01:58 Dose: 4 mg Documented By: SB Ondansetron HCl (Ondansetron 4 Mg/2 Ml Inj) 4 mg IV NOW ONE Stop: 12/23/23 09:07 Last Admin: 12/23/23 09:15 Dose: 4 mg Documented By: MPO Vital Signs Vital signs: Vital Signs - 8 hr 12/23/23 09:57 Temperature 98.7 F Pulse Rate 109 H Respiratory Rate 20 Blood Pressure 143/87 H Pulse Oximetry 98 Oxygen Delivery Method Room Air MDM - Abdominal Pain <Jana Dorado MD - Last Filed: 12/23/23 19:26> Differential Diagnosis Differential diagnosis: Likely abdominal pain, acute appendicitis and calculus of kidney Lab Data 12/23/23 15:30 12/23/23 16:13 Labs: Lab Results 12/23/23 Range/Units 01:54 WBC 5.9 (4.5-11.0) X10^3/uL RBC 4.65 (4.0-5.2) X10^6/uL Hgb 14.4 (12.0-16.0) g/dL Hct 41.7 (36-46) % MCV 89.7 (80-100) fL MCH 30.9 (26-34) PG MCHC 34.4 (30-36) % RDW 13.7 (11.6-14.8) % Plt Count 261 (150-400) X10^3/uL Neut % (Auto) 61.9 (50-75) % Lymph % (Auto) 19.1 L (25-40) % [place] % (Auto) 13.1 (3-14) % Eos % (Auto) 5.4 H (2-4) % Baso % (Auto) 0.5 (0-2) % Neut # (Auto) 3600 (4229-8865) /uL Lymph # (Auto) 1100 (1377-3309) /uL [place] # (Auto) 800 (0-900) /uL Eos # (Auto) 300 (0-450) /uL Baso # (Auto) 0 (0-100) /uL Sodium 134 L (137-145) mmol/L Potassium 3.9 (3.4-5.1) mmol/L Chloride 101 (98-107) mmol/L Carbon Dioxide 25 (22-32) mmol/L BUN 18 H (7-17) mg/dL Creatinine 0.74 (0.52-1.04) mg/dL Estimated GFR > 60 (>60) mL/min BUN/Creatinine Ratio 24.3 H (6-22) Glucose 147 H (70-100) mg/dL Lactate 0.9 (0.7-2.1) mmol/L Calcium 9.1 (8.4-10.2) mg/dL Total Bilirubin 0.8 (0.2-1.3) mg/dL AST 16 (14-36) IU/L ALT 10 (<35) IU/L Alkaline Phosphatase 70 (38-126) U/L Total Protein 7.5 (6.3-8.2) g/dL Albumin 3.9 (3.5-5.0) g/dL Globulin 3.6 (1.7-4.1) g/dL Albumin/Globulin Ratio 1.1 (1.0-2.8) MDM Narrative Medical decision making narrative: Patient tearful, crying, repeatedly stating ?make it stop hurting, make it stop hurting?. Recent umbilical hernia repair after the hernia lead to a small bowel obstruction. Abdomen is soft, even removing the umbilical dressing cause the patient to cry in pain. We will order labs, lactic acid, CT of the abdomen and pelvis. Laboratory work is reviewed, no leukocytosis, normal lactic acid levels. CT of the abdomen and pelvis read as residual/recurrent small-bowel obstruction, no hernia present. Concerned that there may be increase in free fluid in the abdomen and pelvis. Call placed to Dr. Cardoza of on-call General surgery at 0313, who reviewed the images. At 0340 called back to state that CT appears to be more ileus without any obvious obstruction. Recommended Gastrografin challenge with additional assessment to follow after the challenge. Pending Gastrografin imaging at 8:30 a.m. patient received additional pain medications, sleeping comfortably now after receiving droperidol. Care of patient is signed out to Dr. Arreguin at 0700 <Ana M Arreguin, DO - Last Filed: 12/23/23 10:10> Lab Data Labs: Lab Results 12/23/23 Range/Units 01:54 WBC 5.9 (4.5-11.0) X10^3/uL RBC 4.65 (4.0-5.2) X10^6/uL Hgb 14.4 (12.0-16.0) g/dL Hct 41.7 (36-46) % MCV 89.7 (80-100) fL MCH 30.9 (26-34) PG MCHC 34.4 (30-36) % RDW 13.7 (11.6-14.8) % Plt Count 261 (150-400) X10^3/uL Neut % (Auto) 61.9 (50-75) % Lymph % (Auto) 19.1 L (25-40) % [place] % (Auto) 13.1 (3-14) % Eos % (Auto) 5.4 H (2-4) % Baso % (Auto) 0.5 (0-2) % Neut # (Auto) 3600 (1040-7857) /uL Lymph # (Auto) 1100 (5629-7221) /uL [place] # (Auto) 800 (0-900) /uL Eos # (Auto) 300 (0-450) /uL Baso # (Auto) 0 (0-100) /uL Sodium 134 L (137-145) mmol/L Potassium 3.9 (3.4-5.1) mmol/L Chloride 101 (98-107) mmol/L Carbon Dioxide 25 (22-32) mmol/L BUN 18 H (7-17) mg/dL Creatinine 0.74 (0.52-1.04) mg/dL Estimated GFR > 60 (>60) mL/min BUN/Creatinine Ratio 24.3 H (6-22) Glucose 147 H (70-100) mg/dL Lactate 0.9 (0.7-2.1) mmol/L Calcium 9.1 (8.4-10.2) mg/dL Total Bilirubin 0.8 (0.2-1.3) mg/dL AST 16 (14-36) IU/L ALT 10 (<35) IU/L Alkaline Phosphatase 70 (38-126) U/L Total Protein 7.5 (6.3-8.2) g/dL Albumin 3.9 (3.5-5.0) g/dL Globulin 3.6 (1.7-4.1) g/dL Albumin/Globulin Ratio 1.1 (1.0-2.8) Imaging Data Abdominal x-ray: Radiologist's Impression: PROCEDURE:XR GASTROGRAFIN CHALLENGE COMPARISON:CT abdomen pelvis 12/21/2023. INDICATIONS:SBO FINDINGS:There is contrast opacification of the stomach and multiple loops of dilated small bowel. Contrast opacifies the bladder. IMPRESSION:Multiple contrast filled loops of dilated small bowel consistent with small-bowel obstruction. Approved by: Sara Cabrera M.D. on 12/23/2023 at 9:54 CT scan - abdomen/pelvis: Radiologist's Impression: Preliminary report: Residual recurrent small-bowel obstruction following umbilical hernia repair. Currently no umbilical hernia is apparent. Increase in free fluid in the abdomen and pelvis. Dependent atelectatic changes in lung bases ECG Data Interpretation: Sinus rhythm rate 127 [place] interval 138 QRS [address] changes Q-wave noted in lead 3 only MDM Narrative Medical decision making narrative: Patient tearful, crying, repeatedly stating ?make it stop hurting, make it stop hurting?. Recent umbilical hernia repair after the hernia lead to a small bowel obstruction. Abdomen is soft, even removing the umbilical dressing cause the patient to cry in pain. We will order labs, lactic acid, CT of the abdomen and pelvis. Laboratory work is reviewed, no leukocytosis, normal lactic acid levels. CT of the abdomen and pelvis read as residual/recurrent small-bowel obstruction, no hernia present. Concerned that there may be increase in free fluid in the abdomen and pelvis. Call placed to Dr. Cardoza of on-call General surgery at 0313, who reviewed the images. At 0340 called back to state that CT appears to be more ileus without any obvious obstruction. Recommended Gastrografin challenge with additional assessment to follow after the challenge. Pending Gastrografin imaging at 8:30 a.m. patient received additional pain medications, sleeping comfortably now after receiving droperidol. Care of patient is signed out to Dr. Arreguin at 0700 Dr. arreguin-patient signed out to me by Dr. Dorado I have seen evaluated patient myself. She initially was sleeping without any issue she went for her Gastrografin study came back had increased pain was diaphoretic and nauseous the got very tachycardic. Having again increased pain. Waiting for Radiology to read x-ray. Dr. Cardoza reports Gastrografin did not correct bowel obstruction. Patient is doing better after Dilaudid. Patient is admitted to Dr. Cardoza Discharge Plan Departure Patient Disposition: Admitted as Observation Clinical Impression: Small bowel obstruction Admit Date/Time: 12/23/23 09:57 Admit Provider: Zahraa Cardoza
[2023-12-23] MEDS: SODIUM CHLORIDE 0.9% 1,000 ML 1000 ML IV (01:58)
[2023-12-23] MEDS: MORPHINE 4 MG/ML INJ IV (01:58)
[2023-12-23 02:04] LABS: Add Manual Diff / Slide Review NO; Basophils Absolute Auto 0 /uL (0-100); Basophils Percent Auto 0.5 % (0-2); Eosinophils Absolute Auto 300 /uL (0-450); Eosinophils Percent Auto 5.4 % (2-4); Hematocrit 41.7 % (36-46); Hemoglobin 14.4 g/dL (12.0-16.0); Lymphocytes Absolute Auto 1100 /uL (1100-4500); Lymphocytes Percent Auto 19.1 % (25-40); Mean Corpuscular HGB Conc 34.4 % (30-36); Mean Corpuscular Hemoglobin 30.9 PG (26-34); Mean Corpuscular Volume 89.7 fL (80-100); Monocytes Absolute Auto 800 /uL (0-900); Monocytes Percent Auto 13.1 % (3-14); Neutrophils Absolute Auto 3600 /uL (1500-7000); Neutrophils Percent Auto 61.9 % (50-75); Platelet Count 261 X10^3/uL (150-400); Red Blood Cell Count 4.65 X10^6/uL (4.0-5.2); Red Cell Distribution Width 13.7 % (11.6-14.8); White Blood Cell Count 5.9 X10^3/uL (4.5-11.0)
[2023-12-23 02:13] LABS: Alanine Aminotransferase 10 IU/L (<35); Albumin 3.9 g/dL (3.5-5.0); Albumin Globulin Ratio 1.1 (1.0-2.8); Alkaline Phosphatase 70 U/L (38-126); Aspartate Aminotransferase 16 IU/L (14-36); BUN Creatinine Ratio 24.3 (6-22); Bilirubin Total 0.8 mg/dL (0.2-1.3); Blood Urea Nitrogen 18 mg/dL (7-17); Calcium 9.1 mg/dL (8.4-10.2); Carbon Dioxide 25 mmol/L (22-32); Chloride 101 mmol/L (98-107); Estimated Glomerular Filt Rate > 60 mL/min (>60); Globulin 3.6 g/dL (1.7-4.1); Glucose 147 mg/dL (70-100); HEMOLYSIS < 15 (0-50); Lactate (Lactic Acid) 0.9 mmol/L (0.7-2.1); Potassium 3.9 mmol/L (3.4-5.1); Sodium 134 mmol/L (137-145); Total Protein 7.5 g/dL (6.3-8.2)
[2023-12-23] MEDS: DIATRIZOATE MEGLUMINE, SODIUM 30 ML SOLUTION PO (04:15)
[2023-12-23] MEDS: KETOROLAC 30 MG/ML VIAL 15 MG IV (04:17)
[2023-12-23] MEDS: ACETAMINOPHEN IV 1,000 MG/100 ML VIAL 400 MG IV (04:18)
[2023-12-23] MEDS: METOCLOPRAMIDE 10 MG/2 ML INJ IV (04:28)
[2023-12-23] MEDS: DROPERIDOL 5 MG/2 ML VIAL 2.5 MG IV (05:07)
--- NOTE | 2023-12-23 08:00 | DI.RAD.S_ITS ---
PROCEDURE: XR GASTROGRAFIN CHALLENGE COMPARISON: CT abdomen pelvis 12/21/2023. INDICATIONS: SBO FINDINGS: There is contrast opacification of the stomach and multiple loops of dilated small bowel. Contrast opacifies the bladder. IMPRESSION: Multiple contrast filled loops of dilated small bowel consistent with small-bowel obstruction. Approved by: Sara Cabrera M.D. on 12/23/2023 at 9:54
[2023-12-23] MEDS: ONDANSETRON 4 MG/2 ML INJ IV (09:15)
[2023-12-23] MEDS: HYDROMORPHONE 1 MG INJ IV (09:15)
[2023-12-23] MEDS: LACTATED RINGERS 1,000 ML 100 ML IV ×2 (11:07→23:51)
[2023-12-23] MEDS: KETOROLAC 30 MG/ML VIAL IV (11:08)
[2023-12-23] MEDS: HEPARIN 5,000 UNIT/ML VIAL 5000 UNIT SUBCUT ×2 (11:08→20:27)
[2023-12-23] MEDS: SIMETHICONE 80 MG TABLET PO ×3 (11:08→18:23)
--- NOTE | 2023-12-23 11:23 | P.HP_ITS ---
History of Present Illness History of Present Illness Date Patient Seen: 12/23/23 Time Patient Seen: 11:23 Chief complaint: had surgery 2 days ago and is in a lot of pain Narrative: S/P umbilical hernia repair for obstructing, incarcerated umbilical hernia. Returns with abdominal pain, N/V and dehydration. CT scan concerning for SBO, fluid in pelvic, no recurrence of hernia. [facility] Medical History Multiple sclerosis Surgical History H/O tubal ligation Social History household members: significant other Smoking Status: Current some day smoker alcohol intake: never Meds Home Medications and Allergies Home Medications Medication Instructions Recorded Confirmed Type bacitracin 500 unit/gram topical 1 applic topical TID #28 grams 06/04/23 12/21/23 Rx ointment furosemide 20 mg tablet 20 mg PO BID 06/04/23 12/21/23 History Allergies Allergy/AdvReac Type Severity Reaction Status Date / Time Penicillins Allergy Severe Anaphylaxis Verified 06/04/23 19:19 Review of Systems Review of Systems ROS: Yes All systems reviewed with the patient and are negative except as otherwise documented Exam Vital Signs (past 8 hours): - 12/23/23 03:30 12/23/23 04:00 12/23/23 04:30 Temperature Pulse Rate 95 H 96 H 99 H Respiratory Rate Blood Pressure Pulse Oximetry 99 90 L 98 Oxygen Delivery Method 12/23/23 08:55 12/23/23 08:56 12/23/23 09:57 Temperature 98.7 F Pulse Rate 123 H 109 H Respiratory Rate 18 20 Blood Pressure 122/74 143/87 H Pulse Oximetry 93 98 Oxygen Delivery Method Room Air Room Air Oxygen Delivery Method Room Air Const General: cooperative, No acute distress and disheveled Nutritional Appearance: overweight Orientation: awake, oriented x3, oriented to person, oriented to place and oriented to time [place] Head: normocephalic and atraumatic Eyes General: appearance normal, both eyes and all related structures Sclera: sclerae normal Neck Neck: trachea midline and No JVD Resp Effort & Inspection: normal respiratory effort, able to speak in complete sentences and normal respiratory pattern Cardio Rate: tachycardic Rhythm: regular rhythm GI Inspection: distended Palpation: No firm, No guarding and tender (surgical site tenderness, pain is generalized and sharp) Auscultation: absent bowel sounds Skin General: turgor normal and No atrophy Neuro General: patient awake and patient oriented x3 Cognition: normal cognition Extrem General: No no joint enlargement and No pedal edema Psych Mental Status: mental status grossly normal Judgment: judgment good Objective Labs 12/23/23 01:54 12/23/23 01:54 Labs: Laboratory Results - last 24 hr 12/23/23 01:54 WBC 5.9 RBC 4.65 Hgb 14.4 Hct 41.7 MCV 89.7 MCH 30.9 MCHC 34.4 RDW 13.7 Plt Count 261 Neut % (Auto) 61.9 Lymph % (Auto) 19.1 L [place] % (Auto) 13.1 Eos % (Auto) 5.4 H Baso % (Auto) 0.5 Neut # (Auto) 3600 Lymph # (Auto) 1100 [place] # (Auto) 800 Eos # (Auto) 300 Baso # (Auto) 0 Sodium 134 L Potassium 3.9 Chloride 101 Carbon Dioxide 25 BUN 18 H Creatinine 0.74 Estimated GFR > 60 BUN/Creatinine Ratio 24.3 H Glucose 147 H Lactate 0.9 Calcium 9.1 Total Bilirubin 0.8 AST 16 ALT 10 Alkaline Phosphatase 70 Total Protein 7.5 Albumin 3.9 Globulin 3.6 Albumin/Globulin Ratio 1.1 Assessment & Plan Assessment & Plan narrative: SBO verses ileus. Could have focal edema at area of previous incarcerated bowel Plan: supportive care Gastrografin challenge. Time Spent With Patient Time with patient: 30 to 49 minutes with 50% spent counseling/coordinating care
[2023-12-23] MEDS: HYDROMORPHONE 0.5 MG INJ IV ×3 (11:25→20:27)
--- NOTE | 2023-12-23 14:51 | PC.NURSE ---
before moving this pt to the ACU pt informed this HAND GLUER AND SLICER she had soild the bed. this HAND GLUER AND SLICER offered to help clean pt but pt refused and wished to clean up when in her new room in the ACU.
--- NOTE | 2023-12-23 15:05 | PC.NURSE ---
Patient arrived to the floor at 1440 and had large, liquid bowel movement. Showered patient, then 2 RN skin check completed with CHILO Sharpe. Patient education done re: room orientation and fall precautions. Patient resting comfortably in bed.
[2023-12-23 15:54] LABS: Add Manual Diff / Slide Review NO; Basophils Absolute Auto 0 /uL (0-100); Basophils Percent Auto 0.3 % (0-2); Eosinophils Absolute Auto 200 /uL (0-450); Eosinophils Percent Auto 4.8 % (2-4); Hemoglobin 13.4 g/dL (12.0-16.0); Lymphocytes Absolute Auto 500 /uL (1100-4500); Lymphocytes Percent Auto 11.3 % (25-40); Mean Corpuscular HGB Conc 33.5 % (30-36); Mean Corpuscular Volume 89.5 fL (80-100); Monocytes Absolute Auto 500 /uL (0-900); Monocytes Percent Auto 10.8 % (3-14); Neutrophils Absolute Auto 3200 /uL (1500-7000); Neutrophils Percent Auto 72.8 % (50-75); Platelet Count 231 X10^3/uL (150-400); Red Blood Cell Count 4.47 X10^6/uL (4.0-5.2); Red Cell Distribution Width 14.2 % (11.6-14.8); White Blood Cell Count 4.4 X10^3/uL (4.5-11.0)
[2023-12-23 16:48] LABS: BUN Creatinine Ratio 25.7 (6-22); Blood Urea Nitrogen 19 mg/dL (7-17); Calcium 8.2 mg/dL (8.4-10.2); Carbon Dioxide 18 mmol/L (22-32); Chloride 108 mmol/L (98-107); Estimated Glomerular Filt Rate > 60 mL/min (>60); Glucose 162 mg/dL (70-100); Sodium 138 mmol/L (137-145)
[2023-12-23 16:50] LABS: HEMOLYSIS 117 (0-50); Potassium 3.9 mmol/L (3.4-5.1)
[2023-12-23 18:09] LABS: Reflexed Lactate in 2 Hours Y
[2023-12-23] MEDS: CELECOXIB 200 MG CAPSULE PO (20:27)
[2023-12-23 21:07] LABS: Lactate 2HR (Lactic Acid Rflx) 3.1 mmol/L (0.7-2.1)
[2023-12-23 23:25] LABS: Lactate (Lactic Acid) 1.2 mmol/L (0.7-2.1)
[2023-12-24] VITALS: BP 124/71; PULSE 114; RESP 17; TEMP 36.9; O2SAT 92
[2023-12-24] MEDS: HYDROMORPHONE 0.5 MG INJ IV ×2 (01:29→09:35)
[2023-12-24] MEDS: SCOPOLAMINE 1 PATCH TOP (01:50)
[2023-12-24] MEDS: ONDANSETRON 4 MG/2 ML INJ IV ×2 (01:50→09:36)
[2023-12-24 04:00] VITALS: BP 128/76; PULSE 110; RESP 19; TEMP 36.8; O2SAT 92
[2023-12-24 08:00] VITALS: BP 131/85; PULSE 105; O2SAT 92
[2023-12-24 09:34] VITALS: O2SAT 95
[2023-12-24] MEDS: HEPARIN 5,000 UNIT/ML VIAL 5000 UNIT SUBCUT (09:35)
[2023-12-24] MEDS: CELECOXIB 200 MG CAPSULE PO (09:36)
[2023-12-24] MEDS: SIMETHICONE 80 MG TABLET PO (09:38)
[2023-12-24] MEDS: LACTATED RINGERS 1,000 ML 100 ML IV (09:45)
--- NOTE | 2023-12-24 12:59 | PM.PN.1 ---
Subjective Subjective Date Patient Seen: 12/24/23 Time Patient Seen: 12:59 Interval history: Patient had multiple bowel movements last night and today. Still has nausea, possibly related to narcotic IV. Exam Vital Signs (past 8 hours): - 12/24/23 08:00 Pulse Rate 105 H Blood Pressure 131/85 Pulse Oximetry 92 Oxygen Flow Rate 0 Oxygen Delivery Method Room Air Oxygen Flow Rate 0 Const General: lethargic and well hydrated Nutritional Appearance: overweight HENMT Head: normocephalic and atraumatic Neck Neck: trachea midline and No JVD Resp Effort & Inspection: normal respiratory effort and able to speak in complete sentences Cardio Rate: tachycardic Rhythm: regular rhythm GI Palpation: soft and tender (tenderness at incision, no guarding. wound intact ) Skin General: elasticity normal and turgor normal Neuro General: patient awake, patient oriented x3 and moves all extremities Cognition: normal cognition Psych Appearance: disheveled Mental Status: mental status grossly normal Judgment: fair Objective Labs 12/23/23 15:30 12/23/23 16:13 Labs: Laboratory Results - last 24 hr 12/23/23 12/23/23 12/23/23 15:30 16:13 20:45 WBC 4.4 L RBC 4.47 Hgb 13.4 Hct 40.0 MCV 89.5 MCH 30.0 MCHC 33.5 RDW 14.2 Plt Count 231 Neut % (Auto) 72.8 Lymph % (Auto) 11.3 L [place] % (Auto) 10.8 Eos % (Auto) 4.8 H Baso % (Auto) 0.3 Neut # (Auto) 3200 Lymph # (Auto) 500 L [place] # (Auto) 500 Eos # (Auto) 200 Baso # (Auto) 0 Sodium 138 Potassium 3.9 Chloride 108 H Carbon Dioxide 18 L BUN 19 H Creatinine 0.74 Estimated GFR > 60 BUN/Creatinine Ratio 25.7 H Glucose 162 H Lactate 3.0 H 3.1 H Calcium 8.2 L 12/23/23 23:10 WBC RBC Hgb Hct MCV MCH MCHC RDW Plt Count Neut % (Auto) Lymph % (Auto) [place] % (Auto) Eos % (Auto) Baso % (Auto) Neut # (Auto) Lymph # (Auto) [place] # (Auto) Eos # (Auto) Baso # (Auto) Sodium Potassium Chloride Carbon Dioxide BUN Creatinine Estimated GFR BUN/Creatinine Ratio Glucose Lactate 1.2 Calcium [facility] Medical History Multiple sclerosis Surgical History H/O tubal ligation Social History household members: significant other Smoking Status: Current some day smoker alcohol intake: never Assessment & Plan Assessment & Plan narrative: SBO vs ileus has clinically resolved. Tolerating clear liquids. Nausea possibly related to IV narcotic Plan: Advance diet stop IV narcotic Possible discharge today if pain and nausea controlled. Time Spent With Patient Time with patient: 30 to 49 minutes with 50% spent counseling/coordinating care
[2023-12-24 13:57] VITALS: BP 134/91; PULSE 94; TEMP 37.1; O2SAT 93
[2023-12-24 15:52] VITALS: BP 114/71; PULSE 105
--- NOTE | 2023-12-24 17:03 | PC.NURSE ---
Patient is A&OX4, VSS, afebrile on RA. She reports having loose stool. She is able to drink fluids this morning, extremely nauseated after given prn pain med hydromorphone 0.5mg PRN. She sleeps throughout the morning after this. MD Cardoza at bedside this afternoon evaluating patient. Patient continues to deny nausea this afternoon and showers this afternoon stating she feels much better and good enough to discharge home. MD notified and she is cleared for discharge home with her spouse this evening. She verbalizes understanding of meds, activity limitations, site care and follow up appointment with MD Cardoza. She is escorted by RN to private vehicle with spouse and all of her belongings for discharge home this evening at 1640.
== END 2023-12-24 16:40 | disposition home or self-care (01) ==
LOC: ED 06:57 → AC 09:59
PROVIDERS: Emergency Medicine; Admitting Provider Surgery; Emergency Provider Emergency Medicine; Referring Provider Emergency Medicine; Visit Provider Surgery
DX: R10.9 Unspecified abdominal pain (principal); R11.2 Nausea with vomiting, unspecified; E86.0 Dehydration; G35 Multiple sclerosis; Z98.890 Other specified postprocedural states
CPT/HCPCS: 36415; 74018; 74177; 80048; 80053; 83605; 85025; 93005; 96361; 96365; 96372; 96375; 96376; 99284; G0378; J0136; J1170; J1644; J1790; J1885; J2270; J2405; J2765; Q9967

== ENCOUNTER 2024-04-28 20:45 | Emergency (ER) | payer OTHER, MEDICAID, SELFPAY ==
[2023-12-23 18:23] VITALS: BMI 30.9
[2024-04-28] VITALS (8 sets, daily range): BP systolic 122–140; BP diastolic 67–69; PULSE 96–114; RESP 14–23; TEMP 37; O2SAT 95–100; BMI 27.4
--- NOTE | 2024-04-28 20:55 | DI.RAD.S_ITS ---
PROCEDURE: XR CHEST 1V INDICATIONS: suspected sepsis TECHNIQUE: One view of the chest was acquired. COMPARISON: None. FINDINGS: Surgical changes and devices: None. Lungs and pleura: Subtle opacity in right infrahilar region is seen, concerning for small right lower lobe infiltrate. Left lung is clear. No pleural effusions or pneumothorax. Mediastinum: Mediastinal contours appear normal. Heart size is normal. Bones and chest wall: No suspicious bony lesions. Overlying soft tissues appear unremarkable. IMPRESSION: Finding is concerning for small right lower lobe infiltrate versus atelectasis. No pleural effusion or pneumothorax. Dictated by: Brown Roberson M.D. on 04/28/2024 at 21:37 Approved by: Brown Roberson M.D. on 04/28/2024 at 21:40
--- NOTE | 2024-04-28 20:55 | EKG_ITS ---
[address] [id number] Test Date: 2024-04-28 Pat Name: Romy Akers Department: Room: Gender: Female Inseamer: SHANIQUE : 1980 Requested By: Order Number: [id number] Reading MD: Marcos Collins Measurements Intervals [place] Rate: 105 P: 58 DE: 154 QRS: 32 QRSD: 84 T: 41 QT: 362 QTc: 478 Interpretive Statements Sinus tachycardia Possible Left atrial enlargement Electronically Signed On 04-30-2024 19:42:07 PDT by Marcos Collins
--- NOTE | 2024-04-28 21:18 | DI.US.S_ITS ---
PROCEDURE: US PERIPH VENOUS LOW EXTREM LT INDICATIONS: 2 DAYS LE SWELLING TECHNIQUE: Real-time imaging, as well as color and pulse Doppler interrogation, were performed of the lower extremity deep veins from the inguinal ligament to the popliteal fossa, with documentation of the visualized calf veins. COMPARISON: None. FINDINGS: The common femoral, femoral, popliteal, and the visualized calf veins are normally compressible, and free of intraluminal thrombus. Color and pulse Doppler demonstrate normal phasic intraluminal flow. There is normal augmentation response to distal compression maneuver. IMPRESSION: No evidence of DVT in visualized left lower extremity veins. Dictated by: Brown Roberson M.D. on 04/28/2024 at 22:11 Approved by: Brown Roberson M.D. on 04/28/2024 at 22:12
--- NOTE | 2024-04-28 21:20 | ED.SKABFB ---
HPI - Skin/Abscess/Foreign Bdy General Chief complaint: Skin/Abscess/Foreign Body Stated complaint: fever T-2 Time Seen by Provider: 04/28/24 20:53 Source: patient Mode of arrival: Ambulatory Limitations: no limitations History of Present Illness HPI narrative: 43-year-old female with history of MS on dimethyl fumarate presents for 2 days of left lower quadrant pain and swelling as well as feeling feverish. Patient did not measure temperature at home. Has been taking ibuprofen at home for symptoms, last dose just before 4:00 p.m.. Patient states she has a history of cellulitis in his concerned that she may have recurrence of cellulitis in her left leg. Denies cut, bite, or abrasion prior to symptom onset. Related Data Home Medications Medication Instructions Recorded Confirmed furosemide 20 mg tablet 20 mg PO BID 06/04/23 01/09/24 Previous Rx's Medication Instructions Recorded hydroxyzine pamoate 25 mg capsule 25 mg PO TID PRN nausea and 12/25/23 (Vistaril) vomiting #10 caps ondansetron HCl 4 mg tablet 4 mg PO BID-TID PRN nausea and 12/25/23 vomiting #10 tabs clindamycin HCl 150 mg capsule 450 mg (3 x 150 mg) PO TID 7 days 04/28/24 #63 caps Allergies Allergy/AdvReac Type Severity Reaction Status Date / Time Penicillins Allergy Severe Anaphylaxis Verified 04/28/24 20:50 Patient History Medical History Multiple sclerosis Surgical History H/O tubal ligation Social History household members: significant other Smoking Status: Current some day smoker alcohol intake: never Smoking Status: Current some day smoker alcohol intake frequency: holidays/special occasions only Substance Use Type: marijuana Exam Initial Vital Signs Initial Vital Signs: Vital Signs Temperature 98.6 F 04/28/24 20:46 Pulse Rate 114 H 04/28/24 20:46 Respiratory Rate 14 04/28/24 20:46 Blood Pressure 122/69 04/28/24 20:46 Pulse Oximetry 100 04/28/24 20:46 Oxygen Delivery Method Room Air 04/28/24 20:46 Const: Awake, alert, no acute distress, nontoxic appearing Cardiac: Tachycardia, regular rhythm RESP: unlabored, clear bilaterally, no wheezing MSK: Left lower extremity larger in size than right lower extremity, no edema Skin: Splotchy erythema from right ankle to right lyles anteriorly with associated warmth. No fluctuance or induration Neuro: AO x3, CN II-XII grossly intact, moves all extremities Course Orders Ordered: Discontinued Medications Acetaminophen (Acetaminophen 325 Mg Tablet) 975 mg PO NOW ONE Stop: 04/28/24 23:11 Last Admin: 04/28/24 23:52 Dose: 975 mg Documented By: Sodium Chloride (Normal Saline 0.9%) 1,000 mls @ 1,000 mls/hr IV BOLUS ONE Stop: 04/28/24 21:53 Last Infusion: 04/28/24 22:44 Dose: Infused Documented By: Admin: 04/28/24 21:52 Dose: 1,000 mls/hr Documented By: Vancomycin HCl/Dextrose (Vancomycin) 2,000 mg in 400 mls @ 200 mls/hr IV NOW ONE Stop: 04/28/24 23:15 Last Infusion: 04/29/24 00:40 Dose: Infused Documented By: Admin: 04/28/24 22:40 Dose: 200 mls/hr Documented By: Ceftriaxone Sodium 2,000 mg/ (Sodium Chloride) 100 mls @ 200 mls/hr IV NOW ONE Stop: 04/28/24 21:17 Last Infusion: 04/28/24 22:37 Dose: Infused Documented By: Admin: 04/28/24 21:52 Dose: 200 mls/hr Documented By: Ondansetron HCl (Ondansetron 4 Mg/2 Ml Inj) 4 mg IV NOW PRN PRN Reason: Nausea And Vomiting Vital Signs Vital signs: Vital Signs - 8 hr 04/28/24 22:58 04/28/24 22:58 04/28/24 23:00 Pulse Rate 97 H 97 H Respiratory Rate 23 19 Blood Pressure 125/67 Pulse Oximetry 100 99 04/28/24 23:00 04/28/24 23:30 04/28/24 23:30 Pulse Rate 97 H Respiratory Rate 21 Blood Pressure 128/67 140/68 Pulse Oximetry 04/29/24 00:00 04/29/24 00:01 04/29/24 00:01 Pulse Rate 93 H 94 H Respiratory Rate 22 22 Blood Pressure 116/61 Pulse Oximetry 98 97 04/29/24 00:30 04/29/24 00:30 Pulse Rate 93 H Respiratory Rate 19 Blood Pressure 116/58 L Pulse Oximetry 97 MDM - Skin/Abscess/Foreign Bdy Differential Diagnosis Differential diagnosis: Likely abscess of skin or subcutaneous tissue, viral exanthem and dermatophytosis Lab Data 04/28/24 21:21 04/28/24 21:21 Labs: Lab Results 04/28/24 Range/Units 21:21 WBC 8.3 (4.5-11.0) X10^3/uL RBC 4.34 (4.0-5.2) X10^6/uL Hgb 13.0 (12.0-16.0) g/dL Hct 38.3 (36-46) % MCV 88.1 (80-100) fL MCH 30.0 (26-34) PG MCHC 34.1 (30-36) % RDW 13.9 (11.6-14.8) % Plt Count 204 (150-400) X10^3/uL Neut % (Auto) 81.9 H (50-75) % Lymph % (Auto) 12.4 L (25-40) % [place] % (Auto) 4.0 (3-14) % Eos % (Auto) 1.2 L (2-4) % Baso % (Auto) 0.5 (0-2) % Neut # (Auto) 6800 (4083-0043) /uL Lymph # (Auto) 1000 L (8562-1389) /uL [place] # (Auto) 300 (0-900) /uL Eos # (Auto) 100 (0-450) /uL Baso # (Auto) 0 (0-100) /uL PT 12.8 H (9.4-12.5) SECONDS INR 1.1 (0.9-1.3) APTT 34 (25.1-36.5) SECONDS Sodium 133 L (137-145) mmol/L Potassium 3.3 L (3.4-5.1) mmol/L Chloride 105 (98-107) mmol/L Carbon Dioxide 23 (22-32) mmol/L BUN 11 (7-17) mg/dL Creatinine 0.87 (0.52-1.04) mg/dL Estimated GFR > 60 (>60) mL/min BUN/Creatinine Ratio 12.6 (6-22) Glucose 170 H (70-100) mg/dL Lactate 1.6 (0.7-2.1) mmol/L Calcium 8.4 (8.4-10.2) mg/dL Total Bilirubin 0.4 (0.2-1.3) mg/dL AST 23 (14-36) IU/L ALT 16 (<35) IU/L Alkaline Phosphatase 69 (38-126) U/L Total Protein 7.1 (6.3-8.2) g/dL Albumin 3.8 (3.5-5.0) g/dL Globulin 3.3 (1.7-4.1) g/dL Albumin/Globulin Ratio 1.2 (1.0-2.8) Lipase 53 (23-300) U/L Procalcitonin 0.218 (<0.5) ng/mL Imaging Data US - DVT: Radiologist's Impression: PROCEDURE: US PERIPH VENOUS LOW EXTREM LT INDICATIONS: 2 DAYS LE SWELLING TECHNIQUE: Real-time imaging, as well as color and pulse Doppler interrogation, were performed of the lower extremity deep veins from the inguinal ligament to the popliteal fossa, with documentation of the visualized calf veins. COMPARISON: None. FINDINGS: The common femoral, femoral, popliteal, and the visualized calf veins are normally compressible, and free of intraluminal thrombus. Color and pulse Doppler demonstrate normal phasic intraluminal flow. There is normal augmentation response to distal compression maneuver. IMPRESSION: No evidence of DVT in visualized left lower extremity veins. Dictated by: Brown Roberson M.D. on 04/28/2024 at 22:11 Approved by: Brown Roberson M.D. on 04/28/2024 at 22:12 [facility] Narrative Medical decision making narrative: Nontoxic appearing patient with 2 days of symptoms. Patient does have some splotchy erythema of her left anterior distal lower extremity without edema and some size discrepancy in the left lower extremity compared to the right lower extremity. Reports feeling feverish, afebrile in triage, took last dose of ibuprofen several hours prior to arrival. Out of precaution due to history of MS labs, cultures, lactic acid, IV antibiotics ordered. Vancomycin and Rocephin ordered for coverage of skin and soft tissue organisms. Ultrasound of the left lower extremity ordered to assess for DVT. Ultrasound negative for DVT, laboratory work shows WBC count 8.3, hemoglobin 13, platelet count 204, sodium 133, potassium 3.3, creatinine 0.87, glucose 170, lactic acid 1.6, procalcitonin 0.218. Patient's only medication for MS is dimethyl fumarate, which has immunomodulatory properties without immunosuppression. Patient's cellulitis seems to be localized enough that I believe that she was a good candidate for outpatient antibiotics at this time. Patient counseled on all lab and imaging findings, she states that she would like to try outpatient therapy. Advised to draw a margin around the area of cellulitis and to monitor for expansion. ED return precautions discussed. Antibiotics sent to pharmacy of choice, elected clindamycin as this will have both skin and soft tissue and MRSA coverage. Discharge Plan Departure Patient Disposition: Home Clinical Impression: Cellulitis of left anterior lower leg Instructions: DI for Cellulitis -- Adult Activity Restrictions/Additional Instructions: Your laboratory work and imaging today do not show evidence of an overwhelming bloodstream infection. Your ultrasound did not show any evidence of a blood clot. You were given an IV dose of antibiotics here, but at this time it appears as though the cellulitis in your leg can be treated with antibiotics at home. Draw a margin around the area of redness and monitor closely for expansion. If you notice severe worsening, especially with antibiotics, please return to the emergency department. Finish all of your antibiotics as prescribed even if you feel better. Prescriptions: New clindamycin HCl 150 mg capsule 450 mg PO TID 7 Days Qty: 63 0RF No Action furosemide 20 mg tablet 20 mg PO BID ondansetron HCl 4 mg tablet 4 mg PO BID-TID PRN (Reason: nausea and vomiting) Qty: 10 0RF hydroxyzine pamoate [Vistaril] 25 mg capsule 25 mg PO TID PRN (Reason: nausea and vomiting) Qty: 10 0RF Stand Alone Forms: Patient Portal/API
[2024-04-28 21:37] LABS: Add Manual Diff / Slide Review NO; Basophils Absolute Auto 0 /uL (0-100); Basophils Percent Auto 0.5 % (0-2); Eosinophils Absolute Auto 100 /uL (0-450); Eosinophils Percent Auto 1.2 % (2-4); Hematocrit 38.3 % (36-46); Lymphocytes Absolute Auto 1000 /uL (1100-4500); Lymphocytes Percent Auto 12.4 % (25-40); Mean Corpuscular HGB Conc 34.1 % (30-36); Mean Corpuscular Volume 88.1 fL (80-100); Monocytes Absolute Auto 300 /uL (0-900); Neutrophils Absolute Auto 6800 /uL (1500-7000); Neutrophils Percent Auto 81.9 % (50-75); Platelet Count 204 X10^3/uL (150-400); Red Blood Cell Count 4.34 X10^6/uL (4.0-5.2); Red Cell Distribution Width 13.9 % (11.6-14.8); White Blood Cell Count 8.3 X10^3/uL (4.5-11.0)
[2024-04-28 21:45] LABS: INR 1.1 (0.9-1.3); Prothrombin Time 12.8 SECONDS (9.4-12.5)
[2024-04-28 21:47] LABS: PTT Partial Thromboplastin Tim 34 SECONDS (25.1-36.5)
[2024-04-28 21:48] LABS: Alanine Aminotransferase 16 IU/L (<35); Albumin 3.8 g/dL (3.5-5.0); Albumin Globulin Ratio 1.2 (1.0-2.8); Alkaline Phosphatase 69 U/L (38-126); Aspartate Aminotransferase 23 IU/L (14-36); BUN Creatinine Ratio 12.6 (6-22); Bilirubin Total 0.4 mg/dL (0.2-1.3); Blood Urea Nitrogen 11 mg/dL (7-17); Calcium 8.4 mg/dL (8.4-10.2); Carbon Dioxide 23 mmol/L (22-32); Chloride 105 mmol/L (98-107); Estimated Glomerular Filt Rate > 60 mL/min (>60); Globulin 3.3 g/dL (1.7-4.1); Glucose 170 mg/dL (70-100); HEMOLYSIS < 15 (0-50); Lactate (Lactic Acid) 1.6 mmol/L (0.7-2.1); Lipase 53 U/L (23-300); Potassium 3.3 mmol/L (3.4-5.1); Sodium 133 mmol/L (137-145); Total Protein 7.1 g/dL (6.3-8.2)
[2024-04-28] MEDS: cefTRIAXone 2,000 MG in SODIUM CHLORIDE 0.9% 100 ML 200 MG IV (21:52)
[2024-04-28] MEDS: SODIUM CHLORIDE 0.9% 1,000 ML 1000 ML IV (21:52)
[2024-04-28 22:04] LABS: Procalcitonin 0.218 ng/mL (<0.5)
[2024-04-28] MEDS: VANCOMYCIN 2,000 MG/400 ML PIGGYBACK 200 MG IV (22:40)
[2024-04-28] MEDS: ACETAMINOPHEN 325 MG TABLET 975 MG PO (23:52)
[2024-04-29] VITALS: PULSE 93; RESP 22; O2SAT 98
[2024-04-29 00:01] VITALS: BP 116/61; PULSE 94; RESP 22; O2SAT 97
[2024-04-29 00:30] VITALS: BP 116/58; PULSE 93; RESP 19; O2SAT 97
== END 2024-04-29 01:04 | disposition home or self-care (01) ==
PROVIDERS: Emergency Provider Emergency Medicine
DX: L03.116 Cellulitis of left lower limb (principal)
CPT/HCPCS: 36415; 71045; 80053; 83605; 83690; 84145; 85025; 85610; 85730; 87040; 93005; 93971; 96365; 96366; 96367; 99284; J0696